=== PATIENT | female | born 1950 | race Caucasian/White ===

== ENCOUNTER 2023-09-08 15:23 | Emergency (ER) | payer OTHER ==
[~2023-09-08] VITALS: Ht 167.6 cm; Wt 89.8 kg
[2023-09-08] MEDS ORDERED: GLIMEPIRIDE4 MG (15:28)
[2023-09-08] MEDS ORDERED: COZAAR100 MG (15:28)
== END 2023-09-08 19:10 | disposition home or self-care (01) ==
LOC: ER 15:23
DX: M54.50 Low back pain, unspecified (principal); Z88.0 Allergy status to penicillin; I10 Essential (primary) hypertension; E11.9 Type 2 diabetes mellitus without complications; Z79.84 Long term (current) use of oral hypoglycemic drugs
CPT/HCPCS: 72072; 72100; 73521; 96372; 99284; J1885; J2360